=== PATIENT | male | born 1985 | race Caucasian/White ===

== ENCOUNTER → 2020-11-09 | Day surgery (SDC) | payer OTHER ==
[~2020-11-09] MED LIST: LEVOFLOXACIN500 MG PO
== END | disposition home or self-care (01) ==
LOC: OR 10:16
DX: N35.912 Unspecified bulbous urethral stricture, male (principal); N35.911 Unspecified urethral stricture, male, meatal; N41.1 Chronic prostatitis; N52.9 Male erectile dysfunction, unspecified; Z88.5 Allergy status to narcotic agent; Z88.0 Allergy status to penicillin; Z88.2 Allergy status to sulfonamides; Z20.822 Contact with and (suspected) exposure to COVID-19; J45.909 Unspecified asthma, uncomplicated
CPT/HCPCS: 81001; C1769; J1100; J1885; J1956; J2250; J2405; J2704; J3010; J7030; J7120; U0002

== ENCOUNTER 2021-01-25 16:59 | Emergency (ER) | payer OTHER ==
[~2021-01-25] VITALS: Ht 182.9 cm; Wt 106.6 kg
== END 2021-01-25 20:45 | disposition home or self-care (01) ==
LOC: ER1 16:59
DX: Z23 Encounter for immunization (principal); U07.1 COVID-19; Z88.0 Allergy status to penicillin; Z88.5 Allergy status to narcotic agent; Z88.2 Allergy status to sulfonamides
CPT/HCPCS: 99284; M0243

== ENCOUNTER 2021-02-10 17:02 | Emergency (ER) | payer OTHER ==
[2021-02-10 22:53] LABS: HEMOGLOBIN 16.1 gm/dl (14.0-17.5); RED BLOOD COUNT 5.75 M/UL (4.20-5.50); WHITE BLOOD COUNT 7.8 K/UL (4.5-11.0)
[2021-02-10 23:18] LABS: BUN/CREATININE RATIO 15 (0-10)
[2021-02-10] MEDS ORDERED: IBUPROFEN800 MG PO (23:49)
[2021-02-10] MEDS ORDERED: CEPHALEXIN500 MG PO (23:50)
== END 2021-02-10 23:55 | disposition home or self-care (01) ==
LOC: ER1 17:02
PROVIDERS: Emergency Medicine
DX: M25.471 Effusion, right ankle (principal); M25.571 Pain in right ankle and joints of right foot; J45.909 Unspecified asthma, uncomplicated; Z90.89 Acquired absence of other organs; Z88.0 Allergy status to penicillin; Z88.2 Allergy status to sulfonamides; Z88.5 Allergy status to narcotic agent; Z91.013 Allergy to seafood
CPT/HCPCS: 29515; 73610; 80053; 84550; 85025; 85379; 99283

== ENCOUNTER → 2021-03-01 | Outpatient (CLI) | payer OTHER ==
[~2021-03-01] MED LIST changes: +CEPHALEXIN500 MG PO; +IBUPROFEN800 MG PO
== END ==
LOC: KOH-I 10:12
DX: M79.604 Pain in right leg (principal)
CPT/HCPCS: 93971

== ENCOUNTER → 2021-04-19 | Outpatient (CLI) | payer OTHER | LOC: RAD 09:06 → KOH-I 09:06 | DX: M25.572 Pain in left ankle and joints of left foot (principal) | CPT/HCPCS: 73610; 73630 ==